=== PATIENT | male | born 1940 | race Caucasian/White ===

== ENCOUNTER → 2023-11-21 09:59 | Outpatient (REF) | payer MEDICARE, SELFPAY | LOC: RAD 09:59 | PROVIDERS: ATTENDING PHYSICIAN Family Medicine | DX: Z87.891 Personal history of nicotine dependence (principal); Z13.6 Encounter for screening for cardiovascular disorders | CPT/HCPCS: 76770 ==

== ENCOUNTER → 2024-08-06 11:19 | Outpatient (REF) | payer MEDICARE, SELFPAY | LOC: HWRAD 11:19 | PROVIDERS: ATTENDING PHYSICIAN Family Medicine | DX: M25.512 Pain in left shoulder (principal) | CPT/HCPCS: 73030 ==